=== PATIENT | female | born 1950 | race Caucasian/White ===

== ENCOUNTER 2022-04-27 08:41 | Outpatient (CLI) | payer MEDICARE, MEDICAID | END 2022-04-27 23:59 | disposition home or self-care (01) | LOC: RAD 08:41 | PROVIDERS: ATTEND Emergency Medicine | DX: M48.55XA Collapsed vertebra, not elsewhere classified, thoracolumbar region, initial encounter for fracture (principal); M48.07 Spinal stenosis, lumbosacral region; G12.8 Other spinal muscular atrophies and related syndromes; M46.28 Osteomyelitis of vertebra, sacral and sacrococcygeal region | CPT/HCPCS: 72148; 72195 ==